=== PATIENT | female | born 1945 | race African-American/Black ===

== ENCOUNTER 2023-07-13 00:08 | Emergency (ER) | payer OTHER ==
[~2023-07-13] VITALS: Ht 165.1 cm; Wt 90.0 kg
[2023-07-13 00:19] VITALS: O2SAT 99
[2023-07-13] MEDS: SODIUM CHLORIDE 0.9% 1,000 ML IV ONE (01:52)
[2023-07-13 01:58] LABS: BASOPHILS % 0.8 % (0.0-2.0); EOSINOPHILS % 2.8 % (0.0-5.0); HEMOGLOBIN. 12.5 g/dL (12.0-16.0); MEAN CORPUSCULAR HEMOGLOBIN 29.5 pg (28.0-32.0); MEAN CORPUSCULAR HGB CONC 32.8 g/dL (31.0-37.0); MEAN CORPUSCULAR VOLUME 89.8 fL (81.0-99.0); MEAN PLATELET VOLUME 9.3 fl (7.4-10.4); MONOCYTES % 7.7 % (2.0-8.0); NEUTROPHILS % 55.7 % (40.0-76.0); PLATELET 258 x1000/uL (130-400); RED BLOOD CELL COUNT 4.23 mill/uL (4.2-5.4); RED CELL DISTRIBUTION WIDTH 14.3 % (11.6-14.6); WHITE BLOOD COUNT 9.1 x1000/uL (4.5-11.0)
[2023-07-13 02:10] LABS: POTASSIUM 3.4 mEq/L (3.5-5.1)
[2023-07-13 02:11] LABS: CALCIUM 9.2 mg/dL (8.7-10.4)
[2023-07-13 02:16] LABS: CREATININE 1.2 mg/dL (0.6-1.0)
[2023-07-13 03:59] LABS: CLARITY URINE CLEAR (CLEAR); COLOR URINE YELLOW (YELLOW); GLUCOSE URINE TRACE (NEGATIVE); KETONES URINE NEGATIVE (NEGATIVE); LEUKOCYTE ESTERASE URINE 1+ (NEGATIVE); NITRITE URINE POSITIVE (NEGATIVE); OCCULT BLOOD URINE NEGATIVE (NEGATIVE); PROTEIN URINE NEGATIVE (NEGATIVE); SPECIFIC GRAVITY URINE 1.015 (1.005-1.030); UROBILINOGEN URINE 0.2 E.U./dL (0.2-1.0)
[2023-07-13] MEDS ORDERED: CEPH250C2 MT (04:14)
[2023-07-13 04:18] LABS: BACTERIA URINE 4+; RBC URINE 0-2 /hpf (0-2); SQUAMOUS EPITHELIAL CELL URINE 2+ /lpf (RARE/1+)
[2023-07-13 04:41] LABS: BETA HYDROXYBUTYRATE 0.1 mMol/L (0.0-0.3)
[2023-07-13 04:50] VITALS: BP 155/83; PULSE 94; RESP 20; TEMP 98.2
== END 2023-07-13 05:16 | disposition home or self-care (01) ==
LOC: ER 00:08
DX: E11.65 Type 2 diabetes mellitus with hyperglycemia (principal); N39.0 Urinary tract infection, site not specified; I10 Essential (primary) hypertension
CPT/HCPCS: 99283; 96360; 96361; 80048; 81003; 82010; 85025; 87086; 87186; 87077; 36415; J7030